=== PATIENT | female | born 1945 | race Caucasian/White ===

== ENCOUNTER → 2019-10-16 | Outpatient (CLI) | payer MEDICARE, OTHER ==
[~2019-10-16] MED LIST: CALC-534 PO; ESTRADIOL CREAM TP; LATA2.5D3 EACHEYE; MAGN400T36 PO; MULT-516 PO; OMEG-133 PO
== END | disposition home or self-care (01) ==
LOC: STAR 12:54
PROVIDERS: ATTEND Obstetrics & Gynecology
DX: Z01.818 Encounter for other preprocedural examination (principal)
CPT/HCPCS: 93005

== ENCOUNTER 2019-10-25 10:58 | Day surgery (SDC) | payer MEDICARE, OTHER ==
[~2019-10-25] VITALS: Ht 182.9 cm; Wt 67.1 kg
[2019-10-25 11:29] VITALS: BP 126/83
[2019-10-25] MEDS ORDERED: LACTATED RINGERS 1,000 ML IV SCH (11:35)
[2019-10-25] MEDS ORDERED: MIDAZOLAM 1 MG/ML, 2ML ONE (12:26)
[2019-10-25] MEDS ORDERED: FENTANYL PF 250 MCG/5ML ONE (12:26)
[2019-10-25] MEDS ORDERED: GABAPENTIN 300 MG CAPSULE PO ONE (12:30)
[2019-10-25] MEDS ORDERED: ACETAMINOPHEN 500 MG TABLET PO ONE (12:30)
[2019-10-25] MEDS ORDERED: FAMOTIDINE 20 MG TABLET PO ONE (12:30)
[2019-10-25] MEDS ORDERED: ACETAMINOPHEN 500 MG TABLET ONE (12:36)
[2019-10-25] MEDS ORDERED: FAMOTIDINE 20 MG TABLET ONE (12:36)
[2019-10-25] MEDS ORDERED: GABAPENTIN 300 MG CAPSULE ONE (12:36)
[2019-10-25] MEDS ORDERED: DEXAMETHASONE 4 MG/ML, 1ML ONE (13:11)
[2019-10-25] MEDS ORDERED: ROCURONIUM 10 MG/ML,10ML ONE (13:11)
[2019-10-25] MEDS ORDERED: CEFAZOLIN 1,000 MG ONE (13:22)
[2019-10-25] MEDS ORDERED: BUPIVACAINE/PF-EPI 0.25% 1:200K INFIL ONE ×2 (13:43→14:42)
[2019-10-25] MEDS ORDERED: HYDROmorphone 1 MG/ML, 1ML INJ IVPush PRN (14:00)
[2019-10-25] MEDS ORDERED: LABETALOL 5MG/ML, 20ML IV PRN (14:00)
[2019-10-25] MEDS ORDERED: ONDANSETRON 2MG/ML, 2ML IV PRN (14:00)
[2019-10-25] MEDS ORDERED: PROMETHAZINE 25 MG/ML, 1ML IV PRN (14:00)
[2019-10-25] MEDS ORDERED: FENTANYL PF 100 MCG/2ML IV PRN (14:00)
[2019-10-25] MEDS ORDERED: OXYcodone 5 MG/5 ML ORAL.SOL UDC PO PRN (14:00)
[2019-10-25] MEDS ORDERED: hydrALAzine 20 MG/ML, 1ML IV PRN (14:00)
[2019-10-25] MEDS ORDERED: BUPIVACAINE/PF 0.25% ONE (14:37)
[2019-10-25] MEDS ORDERED: EPINEPHRINE 1 MG/ML, 1ML ONE (14:37)
[2019-10-25] MEDS ORDERED: PROPOFOL 10 MG/ML, 20ML ONE (15:37)
[2019-10-25] MEDS ORDERED: ONDANSETRON 2MG/ML, 2ML ONE (15:37)
[2019-10-25] MEDS ORDERED: FENTANYL PF 100 MCG/2ML ONE (16:00)
[2019-10-25] MEDS ORDERED: OXYcodone 5 MG/5 ML ORAL.SOL UDC ONE (16:01)
== END 2019-10-25 18:45 | disposition home or self-care (01) ==
LOC: OUT 10:58
PROVIDERS: ATTEND Obstetrics & Gynecology
DX: N81.4 Uterovaginal prolapse, unspecified (principal); M85.80 Other specified disorders of bone density and structure, unspecified site; H40.52X0 Glaucoma secondary to other eye disorders, left eye, stage unspecified; Z79.899 Other long term (current) drug therapy; Z88.2 Allergy status to sulfonamides; Z98.890 Other specified postprocedural states; Z80.49 Family history of malignant neoplasm of other genital organs; Z80.3 Family history of malignant neoplasm of breast; Z83.3 Family history of diabetes mellitus
CPT/HCPCS: 57260; J0171; J0690; J1100; J2250; J2405; J2704; J3010; J3490; J7120